=== PATIENT | male | born 1985 | race Caucasian/White ===

== ENCOUNTER 2020-11-04 19:33 | Emergency (ER) | payer OTHER, SELFPAY ==
--- NOTE | ~2020-11-04 | XR_ITS ---
Indication: Evaluate for an body EXAMINATION: Left hand. 3 views of the left hand do not demonstrate a radiopaque foreign body. There is no fracture or dislocation. XR/XR hand wrist LT IMPRESSION: No radiopaque foreign body is seen. There is no fracture or dislocation.
[2020-11-04 19:36] VITALS: BP 128/82; PULSE 92; RESP 18; TEMP 37; O2SAT 99; BMI 24.3
--- NOTE | 2020-11-04 21:48 | ED.SKABFB ---
HPI - Skin/Abscess/Foreign Bdy General Chief complaint: Skin/Abscess/Foreign Body Stated complaint: lac Time Seen by Provider: 11/04/20 21:38 Source: patient Mode of arrival: ambulatory Limitations: no limitations History of Present Illness HPI narrative: Patient is a 35-year-old male with no significant past medical history who presents after cutting his left wrist on the glass of a door. 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 He states when he tried to budge the door open, the glass broke and he cut his left wrist. He is unsure when his last tetanus shot was. He denies any pain and the bleeding has stopped. Related Data Allergies Allergy/AdvReac Type Severity Reaction Status Date / Time No Known Allergies Allergy Verified 11/04/20 19:35 Review of Systems Review of Systems: Yes all other systems are reviewed and are negative FORMERLY [facility] Social History Social History Advance Directives: No Advance Directives Information Provided: Yes Physical Exam Vital Signs: Vital Signs: Last Vital Signs Temp 98.6 F 11/04/20 19:36 Pulse 92 11/04/20 19:36 Resp 18 11/04/20 19:36 BP 128/82 11/04/20 19:36 Pulse Ox 99 11/04/20 19:36 Body Mass Index 24.3 Const: General: cooperative, healthy appearing, comfortable, no acute distress and well developed Nutritional Appearance: average body habitus Orientation/consciousness: patient oriented x3 Eyes: General: appearance normal, both eyes and all related structures Resp: Effort & Inspection: normal respiratory effort and able to speak in complete sentences Neuro: General: patient oriented x3 Extrem: Other: Left wrist has 3 cm superficial laceration, however the central portion is about a quarter of a cm deep. No bleeding or ecchymosis noted. No signs of infection noted. Patient has full range of motion of the wrist and all of his fingers, strength 5/5, sensation intact on left hand and fingers, NVI Course Course Course Narrative: 35-year-old male cut left volar wrist, approximately 3 centimetres, slightly deeper in the central area, will apply Steri-Strips and glue and cover. Procedures Procedure Narrative Procedure Narrative: Left volar wrist was cleaned with Betadine, wound irrigated. Applied Steri-Strips and glue to the Steri-Strips of a stay in place, applied glue to both ends of the laceration but not the central portion as it is slightly deeper than the rest. Patient tolerated procedure well. Also gave patient tetanus shot. Discharge Plan Discharge Clinical Impression: Laceration Patient Disposition: Home, Self-Care Instructions: Laceration (ED), Diphtheria/Pertussis/Tetanus Vaccine (By injection) Additional Instructions: Today you were given a tetanus shot. I have also applied Steri-Strips with some glue to your wrist, these will loosen up on their own in time and fall off, please keep the area dry. If you notice any increased tenderness, drainage or streaking of red up your arm, please return to the emergency department or call 911.
[2020-11-04] MEDS: Diphth,Pertus(ACell),Tet Adult 0.5 ML SYRINGE IM (22:04)
== END 2020-11-04 22:30 | disposition home or self-care (01) ==
PROVIDERS: Emergency Provider Internal Medicine; PCP Family Medicine
DX: S61.512A Laceration without foreign body of left wrist, initial encounter (principal); M25.532 Pain in left wrist; W25.XXXA Contact with sharp glass, initial encounter; Y93.9 Activity, unspecified; Y92.9 Unspecified place or not applicable; Y99.9 Unspecified external cause status
CPT/HCPCS: 73110; 73130; 90471; 90715; 99283; 99284

== ENCOUNTER → 2021-01-11 11:26 | Outpatient (BNVA) | payer OTHER, SELFPAY | PROVIDERS: PCP Family Medicine; Visit Provider Physician Assistant Medical | DX: M20.012 Mallet finger of left finger(s) (principal) | CPT/HCPCS: 73140; 99203 ==

== ENCOUNTER 2021-01-14 08:52 | Outpatient (RCR) | payer OTHER, SELFPAY | END 2021-03-02 09:16 | disposition home or self-care (01) | LOC: HO.OT 08:52 | PROVIDERS: Visit Provider Internal Medicine | DX: M20.012 Mallet finger of left finger(s) (principal) | CPT/HCPCS: 29130; 97165; 97760 ==

== ENCOUNTER → 2021-01-15 13:28 | Outpatient (BNVA) | payer OTHER, SELFPAY | PROVIDERS: PCP Family Medicine; Visit Provider Internal Medicine | DX: M20.012 Mallet finger of left finger(s) (principal) | CPT/HCPCS: 99213 ==

== ENCOUNTER 2021-10-04 16:19 | Outpatient (REF) | payer OTHER, SELFPAY ==
--- NOTE | ~2021-10-04 | CT_ITS ---
EXAMINATION: CT MAXILLOFACIAL WITHOUT CONTRAST CLINICAL INFORMATION: Nasal polyps. Recurrent sinusitis. Epistaxis. COMPARISON: None available. TECHNIQUE: Multidetector helical imaging was performed in the axial plane with generation of coronal and sagittal reformatted images. This CT examination was performed using dose optimization techniques as appropriate, variously including the following: *Automated exposure control. *Adjustment of mA and/or kV according to patient size (this includes techniques or standardized protocols for targeted exams where dose is matched to indication/reason for exam; i.e. extremities or head). *Use of iterative reconstruction technique. DLP: 128 mGy-cm FINDINGS: FRONTAL SINUSES AND DRAINAGE PATHWAYS: The right frontal sinuses congenitally absent. The left frontal sinuses congenitally diminutive. The left frontoethmoidal recess is patent. MAXILLARY SINUSES AND DRAINAGE PATHWAYS: Mild to moderate polypoid mucosal thickening of the maxillary sinuses. The maxillary ostia and infundibula are patent. ETHMOID SINUSES: Moderate mucosal thickening of the ethmoid air cells. The ethmoid roofs appear symmetric and intact. SPHENOID SINUS AND DRAINAGE PATHWAYS: Mild mucosal thickening of the sphenoid sinus. The sphenoethmoidal recesses are opacified. NASAL PASSAGE: Moderate mucosal thickening of the nasal passages. There is a polypoid mucosal structure extending from the right middle meatus filling the medial aspect of the right nasal passage. Partial filling of the posterior nasal passages bilaterally with polypoid mucosal structures. Mild rightward nasal septal deviation with spurring. ADDITIONAL RELEVANT FINDINGS: The lamina papyracea are intact. No demonstrated abnormalities of the orbits. The carotid canals are normally covered by bone. No significant maxillary periapical disease. The temporomandibular joints are normal. The mastoid air cells and middle ear cavities remain well aerated. Limited evaluation of the intracranial structures without significant abnormalities. CT/CT sinus wo con IMPRESSION: Moderate sinonasal polypoid mucosal disease. Most prominently, a polypoid lesion extends from the right middle meatus filling the medial aspect of the right nasal passage. There is also partial filling of the posterior nasal passages bilaterally. Polypoid lesions.
== END 2021-10-04 16:20 | disposition home or self-care (01) ==
LOC: HO.CT 16:19
PROVIDERS: Visit Provider Otolaryngology
DX: J33.0 Polyp of nasal cavity (principal); J01.91 Acute recurrent sinusitis, unspecified; R04.0 Epistaxis
CPT/HCPCS: 70486